=== PATIENT | male | born 1985 | race Caucasian/White ===

== ENCOUNTER 2020-10-27 12:23 | Emergency (ER) | payer MEDICAID ==
[~2020-10-27] VITALS: Ht 185.4 cm; Wt 122.7 kg
[2020-10-27 12:21] VITALS: BP 151/110
[2020-10-27] MEDS ORDERED: HYDROCODONE/ACETAMINOPHEN 5-325 MG TABLET PO ONE (13:15)
[2020-10-27] MEDS ORDERED: LIDOCAINE 1% 10 ML VIAL SQ ONE (14:15)
== END 2020-10-27 15:47 | disposition home or self-care (01) ==
LOC: EMS 12:23
DX: S63.286A Dislocation of proximal interphalangeal joint of right little finger, initial encounter (principal); I10 Essential (primary) hypertension; W18.39XA Other fall on same level, initial encounter; Y93.66 Activity, soccer; Y92.89 Other specified places as the place of occurrence of the external cause; Y99.8 Other external cause status
CPT/HCPCS: 26770; 73110; 73130; 73140; 99284; J3490